=== PATIENT | male | born 1970 | race Hispanic/Latino ===

== ENCOUNTER 2019-10-15 16:15 | Emergency (ER) | payer SELFPAY ==
--- NOTE | 2019-10-15 17:53 | RAD ---
LEFT WRIST THREE VIEWS: 10/15/19 HISTORY: Wrist injury. FINDINGS/IMPRESSION: There are no signs of fracture or dislocation. If patient's pain persists, follow-up film in 7 to 10 days would be recommended to exclude an occult injury. POS: TELLY
--- NOTE | 2019-10-15 17:55 | RAD ---
LEFT HAND THREE VIEWS: 10/15/19 HISTORY: Hand injury. There is a transverse to slightly obliquely oriented fracture through the mid shaft region of the dis castro phalanx of the ring finger. The little finger is somewhat difficult to assess. Slight irregularit y in the volar aspect of the base of the middle phalanx. It is felt to just be projectional. Clinical correlation as to any pain in this region. IMPRESSION: Distal phalanx ring finger fracture. POS: TELLY
[2019-10-15] MEDS ORDERED: HYDROcodone/Acetaminophen 5/325 mg Tablet ONE (18:05)
[2019-10-15] MEDS ORDERED: Ibuprofen 800 MG TAB ONE (18:05)
== END 2019-10-15 18:20 | disposition home or self-care (01) ==
LOC: NAV ERS 16:15
DX: S62.635A Displaced fracture of distal phalanx of left ring finger, initial encounter for closed fracture (principal); W22.8XXA Striking against or struck by other objects, initial encounter